=== PATIENT | male | born 1980 | race Caucasian/White ===

== ENCOUNTER 2021-09-29 16:28 | Outpatient (CLI) | payer OTHER, SELFPAY ==
[2021-09-29 17:21] LABS: Basophils Absolute Auto 0.08 K/mm3 (0.00-0.10); Basophils Percent Auto 1.2 % (0.0-1.0); Eosinophils Absolute Auto 0.09 K/mm3 (0.02-0.50); Eosinophils Percent Auto 1.4 % (1.0-6.0); Hemoglobin 15.3 g/dL (14.0-18.0); Immature Granulocyte Absolute 0.03 K/mm3 (0.00-0.00); Immature Granulocyte Percent A 0.5 % (0.0-0.0); Lymphocytes Absolute Auto 1.13 K/mm3 (1.10-4.50); Lymphocytes Percent Auto 17.4 % (18.0-42.0); Mean Corpuscular HGB Conc 34.8 g/dL (32.0-36.0); Mean Corpuscular Hemoglobin 34.4 pg (27.0-31.0); Mean Corpuscular Volume 98.9 fL (78.0-102.0); Mean Platelet Volume 8.6 fl (8.7-11.0); Monocytes Percent Auto 12.3 % (2.0-11.0); Neutrophils Absolute Auto 4.4 K/mm3 (1.7-7.2); Neutrophils Percent Auto 67.2 % (50.0-70.0); Platelet Count Result 375 K/mm3 (150-420); Red Blood Count 4.45 M/mm3 (4.70-6.10); White Blood Count 6.5 K/mm3 (4.8-10.8)
[2021-09-29 17:34] LABS: Alanine Aminotransferase 76 U/L (16-63); Albumin Level 3.6 g/dL (3.4-5.0); Alkaline Phosphatase 72 U/L (46-116); Anion Gap 14 mmol/L (8-16); Aspartate Amino Transferase 96 U/L (15-37); Bilirubin Direct 0.3 mg/dL (0-0.2); Bilirubin,Total 0.8 mg/dL (0.00-1.00); Blood Urea Nitrogen 4 mg/dL (7-18); Calcium 8.8 mg/dL (8.5-10.1); Carbon Dioxide 27 mmol/L (21-32); Chloride 98 mmol/L (98-108); Cholesterol 226 mg/dL (0-200); Estimated Glomerular Filt Rate > 60; Glucose 90 mg/dL (70-99); HDL Direct 104 mg/dL (40-60); LDL Cholesterol Calculated 104 mg/dL (<130); Osmolality Calculated 284 mOsm/kg (285-295); Potassium 3.9 mmol/L (3.5-5.1); Sodium 139 mmol/L (136-145); Total Protein 7.2 g/dL (6.4-8.2); Triglycerides 90 mg/dL (0-150)
[2021-10-01 14:57] LABS: NIL 0.01 IU/mL; Quantiferon TB Plus, 1T NEGATIVE (NEGATIVE)
[2021-10-02 18:21] LABS: Hepatitis B Core Ab Total Nonreactive (Nonreactive); Hepatitis B Surface Antibody Nonreactive (Nonreactive); Hepatitis B Surface Antigen Nonreactive (Nonreactive); Hepatitis C Virus Antibody Nonreactive (Nonreactive)
== END 2021-09-29 16:29 | disposition home or self-care (01) ==
LOC: CHSLAB 16:32
PROVIDERS: PCP Family Medicine
DX: Z00.00 Encounter for general adult medical examination without abnormal findings (principal); L40.0 Psoriasis vulgaris; Z13.220 Encounter for screening for lipoid disorders; Z13.6 Encounter for screening for cardiovascular disorders
CPT/HCPCS: 36415; 80053; 80061; 82248; 85025; 86480; 86704; 86706

== ENCOUNTER 2021-10-18 13:54 | Outpatient (CLI) | payer OTHER, SELFPAY ==
--- NOTE | ~2021-10-18 | US_ITS ---
EXAMINATION: US venous doppler [facility] DATE: 10/18/2021 14:22 INDICATION: Left lower limb pain TECHNIQUE: Grayscale ultrasound images without and with compression and Doppler ultrasound images of the left lower extremity veins were obtained. COMPARISON: None. FINDINGS: The visualized portions of left common femoral vein, profunda (deep) femoral vein, femoral vein, popl iteal vein, peroneal veins, posterior tibial veins, gastrocnemius vein and greater saphenous vein out flow are patent. IMPRESSION: 1. No deep venous thrombosis in the left lower limb. Reviewed, dictated and finalized at location A. LERATOR TECHNICIAN
== END 2021-10-18 13:55 | disposition home or self-care (01) ==
LOC: CHSIMG 13:57
PROVIDERS: PCP Family Medicine; Visit Provider Orthopaedic Surgery
DX: M79.662 Pain in left lower leg (principal)
CPT/HCPCS: 93971

== ENCOUNTER 2021-10-19 08:11 | Outpatient (CLI) | payer OTHER, SELFPAY ==
--- NOTE | ~2021-10-19 | US_ITS ---
EXAMINATION: US abdomen limited DATE: 10/19/2021 08:24 INDICATION: Abnormal level of other serum enzymes TECHNIQUE: Multiple grayscale and Doppler ultrasound images of the abdomen were obtained. COMPARISON: None FINDINGS: The pancreatic head and body are normal in appearance. The pancreatic tail is not visualized. Liver has normal contour, with a smooth surface. There is increased parenchymal echogenicity and coarsened echotexture consistent with diffuse hepatic steatosis. No liver lesion identified. No intrahepatic b iliary duct dilation suspected. Portal venous flow was seen in the hepatopetal, normal direction and has normal Doppler waveform. The gallbladder is normal in appearance. There is no cholelithiasis. Th e common bile duct measures 2 mm, which is normal. Sonographic Yates sign was reported as negative b y the design studio consultant. IMPRESSION: 1. Diffuse hepatic steatosis. Reviewed, dictated and finalized at location A. PULLER
== END 2021-10-19 08:12 | disposition home or self-care (01) ==
LOC: CHSIMG 08:13
PROVIDERS: PCP Family Medicine; Visit Provider Nurse Practitioner Family
DX: R74.8 Abnormal levels of other serum enzymes (principal)
CPT/HCPCS: 76705

== ENCOUNTER 2022-01-11 11:07 | Outpatient (CLI) | payer OTHER, SELFPAY ==
--- NOTE | ~2022-01-11 | XR_ITS ---
EXAMINATION: [id number] EXAM DATE: 01/11/2022 11:42 INDICATION: Pain of the right foot, 3rd-4th metatarsal region after fall. Initial encounter. TECHNIQUE: Right foot dorsoplantar, lateral and oblique projections obtained and reviewed. Images o btained standing. There are no prior studies for comparison. FINDINGS: Right metatarsal bones unremarkable. The right 2nd distal phalanx appears hyperflexed com pared to the other toes, clinical correlation. Otherwise, unremarkable examination. IMPRESSION: Hyperflexed right 2nd distal phalanx, otherwise unremarkable exam. Reviewed, dictated and finalized at location G.
[2022-01-11 11:22] LABS: Basophils Percent Auto 1.5 % (0.0-1.0); Eosinophils Absolute Auto 0.06 K/mm3 (0.02-0.50); Eosinophils Percent Auto 0.9 % (1.0-6.0); Hematocrit 43.3 % (40.0-54.0); Hemoglobin 15.2 g/dL (14.0-18.0); Immature Granulocyte Absolute 0.02 K/mm3 (0.00-0.00); Immature Granulocyte Percent A 0.3 % (0.0-0.0); Lymphocytes Absolute Auto 1.22 K/mm3 (1.10-4.50); Lymphocytes Percent Auto 18.7 % (18.0-42.0); Mean Corpuscular HGB Conc 35.1 g/dL (32.0-36.0); Mean Corpuscular Volume 99.8 fL (78.0-102.0); Mean Platelet Volume 8.2 fl (8.7-11.0); Monocytes Absolute Auto 0.61 K/mm3 (0.10-0.90); Monocytes Percent Auto 9.4 % (2.0-11.0); Neutrophils Absolute Auto 4.5 K/mm3 (1.7-7.2); Neutrophils Percent Auto 69.2 % (50.0-70.0); Platelet Count Result 277 K/mm3 (150-420); Red Blood Count 4.34 M/mm3 (4.70-6.10); Red Cell Distribution Width 12.8 % (11.6-14.4); White Blood Count 6.5 K/mm3 (4.8-10.8)
[2022-01-11 12:02] LABS: Alanine Aminotransferase 84 U/L (16-63); Albumin Level 3.8 g/dL (3.4-5.0); Alkaline Phosphatase 57 U/L (46-116); Anion Gap 8 mmol/L (8-16); Aspartate Amino Transferase 134 U/L (15-37); Bilirubin,Total 1.2 mg/dL (0.00-1.00); Blood Urea Nitrogen 4 mg/dL (7-18); Calcium 8.5 mg/dL (8.5-10.1); Carbon Dioxide 29 mmol/L (21-32); Chloride 99 mmol/L (98-108); Estimated Glomerular Filt Rate > 60; Glucose 99 mg/dL (70-99); Osmolality Calculated 278 mOsm/kg (285-295); Potassium 3.9 mmol/L (3.5-5.1); Sodium 136 mmol/L (136-145); Total Protein 7.1 g/dL (6.4-8.2)
== END 2022-01-11 11:08 | disposition home or self-care (01) ==
LOC: CHSLAB 11:09
PROVIDERS: PCP Nurse Practitioner Family; Visit Provider Nurse Practitioner Family
DX: M79.671 Pain in right foot (principal); I95.1 Orthostatic hypotension
CPT/HCPCS: 36415; 73630; 80053; 85025

== ENCOUNTER 2022-08-07 14:50 | Outpatient (CLI) | payer OTHER, SELFPAY ==
--- NOTE | ~2022-08-07 | XR_ITS ---
EXAMINATION: XR foot LT min 3V DATE: 08/07/2022 15:06 INDICATION: Left foot swelling TECHNIQUE: Dorsoplantar, lateral, and 2 oblique views of the left foot were obtained. COMPARISON: 10/25/2021 FINDINGS: There is plantar soft tissue swelling overlying the distal metatarsals. No fracture is iden tified. There is mild osteoarthritis at the first metatarsophalangeal joint. No radiopaque foreign jessica dy is identified. IMPRESSION: 1. Plantar soft tissue swelling overlying the distal metatarsals without evidence of acute osseous ab normality or radiopaque foreign body. Reviewed, dictated and finalized at location A. IMPRESSION: 1. Plantar soft tissue swelling overlying the distal metatarsals without eviden ce of acute osseous abnormality or radiopaque foreign body.
== END 2022-08-07 14:51 | disposition home or self-care (01) ==
LOC: CHSIMG 14:52
PROVIDERS: PCP Family Medicine; Visit Provider Family Medicine
DX: S99.922A Unspecified injury of left foot, initial encounter (principal); M79.89 Other specified soft tissue disorders; M79.672 Pain in left foot
CPT/HCPCS: 73630

== ENCOUNTER 2023-07-31 15:16 | Outpatient (CLI) | payer OTHER, SELFPAY ==
[2023-08-02 17:17] LABS: NIL 0.04 IU/mL; Quantiferon TB Plus, 1T NEGATIVE (NEGATIVE)
[2023-08-03 11:03] LABS: Hepatitis B Core Ab Total Nonreactive (Nonreactive)
[2023-08-03 11:06] LABS: Hepatitis B Surface Antibody Nonreactive (Nonreactive); Hepatitis B Surface Antigen Nonreactive (Nonreactive); Hepatitis C Virus Antibody Nonreactive
== END 2023-07-31 15:17 | disposition home or self-care (01) ==
LOC: CHSLAB 15:19
PROVIDERS: PCP Family Medicine
DX: L40.0 Psoriasis vulgaris (principal)
CPT/HCPCS: 36415; 86480; 86704; 86706; 86803; 87340

== ENCOUNTER 2024-02-25 09:06 | Outpatient (CLI) | payer OTHER, SELFPAY ==
--- NOTE | ~2024-02-25 | XR_ITS ---
EXAMINATION: XR knee LT min 4V DATE: 02/25/2024 09:27 INDICATION: Medial left knee pain TECHNIQUE: Weight bearing anteroposterior and Crystal, sunrise, and flexed lateral views of the lef t knee were obtained COMPARISON: None. FINDINGS: Alignment is normal. No fracture. Mild joint space narrowing at the lateral compartment of the left knee. Medial and patellofemoral compartments are normal. No evident osteophytosis. No joint effusion. Soft tissues are unremarkable. IMPRESSION: 1. Mild osteoarthritis with mild joint space narrowing in the lateral compartment of the left knee. N o joint effusion or acute osseous abnormality. Reviewed, dictated and finalized at location A. IMPRESSION: 1. Mild osteoarthritis with mild joint space narrowing in the lateral compartme nt of the left knee. No joint effusion or acute osseous abnormality.
== END 2024-02-25 09:07 | disposition home or self-care (01) ==
LOC: CHSIMG 09:07
PROVIDERS: Visit Provider Orthopaedic Surgery
DX: M17.12 Unilateral primary osteoarthritis, left knee (principal); M25.562 Pain in left knee
CPT/HCPCS: 73564

== ENCOUNTER 2024-03-05 09:18 | Outpatient (CLI) | payer OTHER, SELFPAY ==
--- NOTE | ~2024-03-05 | MR_ITS ---
MRI of the left knee Clinical history: Medial meniscus tear Technique: Coronal proton density and proton density-weighted images, sagittal proton-density and T2 fat-sat images, and axial proton-density fat-saturated images were acquired. Findings: Anterior and posterior cruciate ligaments are intact. Medial collateral ligament and the la teral collateral ligament complex are intact. Popliteus tendon is intact. Medial and lateral menisci are intact, without evidence of tear. Articular cartilage is well preserved throughout the knee. There is mild marrow edema at the medial c orner of the medial tibial plateau region. Extensor mechanism is intact. There is edema of the quadriceps fat pad. No significant joint effusion or Swenson's cyst. There is a ganglion cyst posterior to the distal femur measuring 2.1 cm in diameter . There is also a ganglion cyst which appears within the popliteus muscle belly, measuring 2.9 cm in diameter. Impression: Probable focal contusion at the medial tibial plateau at the joint line, versus other reactive marrow edema. No ligamentous injury or meniscal tear seen. Ganglion cyst posterior to the distal femur and apparently within the popliteus muscle belly, possibl y extending from the proximal tibiofibular joint, as detailed above. Edema of the quadriceps fat pad could indicate impingement. Reviewed, dictated and finalized at location . Impression: Probable focal contusion at the medial tibial plateau at the joint line, versus other reactive marrow edema. No ligamentous injury or meniscal tear seen. Ganglion cyst posterior to the distal femur and apparently within the popliteus muscle belly, possibly extending from the proximal tibiofibular joint, as deta iled above. Edema of the quadriceps fat pad could indicate impingement.
== END 2024-03-05 09:19 ==
PROVIDERS: PCP Orthopaedic Surgery; Visit Provider Orthopaedic Surgery
DX: M67.462 Ganglion, left knee (principal); M79.4 Hypertrophy of (infrapatellar) fat pad; X58.XXXA Exposure to other specified factors, initial encounter
CPT/HCPCS: 73721